=== PATIENT | female | born 1935 | race Two or more races ===

== ENCOUNTER 2018-09-09 07:45 | Inpatient (IN) | payer OTHER ==
[~2018-09-09] VITALS: Ht 160 cm; Wt 68.0 kg
[2018-09-09] MEDS ORDERED: SYNTHROID50 MCG PO (15:09)
[2018-09-09] MEDS ORDERED: LISINOPRIL20 MG (15:10)
[2018-09-09] MEDS ORDERED: BISOPROLOL FUMA10 MG (15:10)
[2018-09-09] MEDS ORDERED: CARDURA1 MG (15:11)
[2018-09-09] MEDS ORDERED: ASPIR 8181 MG (15:11)
[2018-09-12] MEDS ORDERED: DUI500 PO (16:50)
[2018-09-12] MEDS ORDERED: PERCOCET 5-3251 EACH PO (16:50)
[2018-09-12] MEDS ORDERED: ELIQUIS2.5 MG PO (16:50)
== END 2018-09-12 17:56 | DRG 470 ==
LOC: SURG 09-10 06:50 → O/R 09-10 06:50 → SURH 09-10 07:45 → SURG 09-10 14:39 → SURH 09-10 15:00 → SURG 09-12 17:56
PROVIDERS: ADMIT Orthopaedic Surgery
PROC: 0MNP0ZZ Release Left Knee Bursa and Ligament, Open Approach (ICD-10-PCS; 2018-09-10)
PROC: 0SRD0J9 Replacement of Left Knee Joint with Synthetic Substitute, Cemented, Open Approach (ICD-10-PCS; principal; 2018-09-10 15:00)
DX: M17.12 Unilateral primary osteoarthritis, left knee (principal); D62 Acute posthemorrhagic anemia; M81.0 Age-related osteoporosis without current pathological fracture; I25.10 Atherosclerotic heart disease of native coronary artery without angina pectoris; I11.9 Hypertensive heart disease without heart failure; E66.09 Other obesity due to excess calories; E03.8 Other specified hypothyroidism; I10 Essential (primary) hypertension

== ENCOUNTER 2022-03-24 14:24 | Emergency (ER) | payer OTHER ==
[~2022-03-24] VITALS: Ht 160 cm; Wt 65.8 kg
[~2022-03-24 14:24] MED LIST: ASPIR 8181 MG; BISOPROLOL FUMA10 MG; CARDURA1 MG; DUI500 PO; ELIQUIS2.5 MG PO; LISINOPRIL20 MG; PERCOCET 5-3251 EACH PO; SYNTHROID50 MCG PO
[2022-03-24] MEDS ORDERED: ZESTRIL20 MG PO (14:46)
[2022-03-24] MEDS ORDERED: BISOPROLOL FUMA10 MG PO (14:46)
[2022-03-24] MEDS ORDERED: CARDURA1 MG PO (14:47)
[2022-03-24] MEDS ORDERED: LEVOTHYROXINE25 MCG PO (14:47)
== END 2022-03-24 21:19 | disposition home or self-care (01) ==
LOC: ER 14:24
DX: K59.00 Constipation, unspecified (principal); R10.84 Generalized abdominal pain

== ENCOUNTER 2022-03-31 11:45 | Inpatient (IN) | payer OTHER ==
[~2022-03-31] VITALS: Ht 152.4 cm; Wt 67.6 kg
[~2022-03-31 11:45] MED LIST changes: +BISOPROLOL FUMA10 MG PO; +CARDURA1 MG PO; +LEVOTHYROXINE25 MCG PO; +ZESTRIL20 MG PO
[2022-03-31] MEDS ORDERED: ATORVASTATIN CA10 MG PO (15:18)
[2022-03-31] MEDS ORDERED: ZIAC 10/6.25 MG1 TAB PO (15:19)
[2022-04-27] MEDS ORDERED: HYOSCYAMINE0.125 M1 SL (09:16)
[2022-04-27] MEDS ORDERED: ULTRACET PO (09:17)
[2022-04-27] MEDS ORDERED: INTESTINEX680 M1 PO (09:17)
[2022-04-27] MEDS ORDERED: DICLOFENAC SODI75 MG PO (09:31)
== END 2022-04-27 12:39 | disposition home or self-care (01) | DRG 330 ==
LOC: SURG 04-06 11:45 → O/R 04-24 09:00 → SURH 04-24 09:00
PROVIDERS: Obstetrics & Gynecology; ADMIT Surgery; ATTEND Surgery
PROC: 07BC4ZZ Excision of Pelvis Lymphatic, Percutaneous Endoscopic Approach (ICD-10-PCS; 2022-04-24)
PROC: 0UB54ZZ Excision of Right Fallopian Tube, Percutaneous Endoscopic Approach (ICD-10-PCS; 2022-04-24)
PROC: 0DBU4ZZ Excision of Omentum, Percutaneous Endoscopic Approach (ICD-10-PCS; 2022-04-24)
PROC: 0DJD8ZZ Inspection of Lower Intestinal Tract, Via Natural or Artificial Opening Endoscopic (ICD-10-PCS; 2022-04-24)
PROC: 0DTN4ZZ Resection of Sigmoid Colon, Percutaneous Endoscopic Approach (ICD-10-PCS; principal; 2022-04-24 09:30)
PROC: 0DBP4ZZ Excision of Rectum, Percutaneous Endoscopic Approach (ICD-10-PCS; 2022-04-24 09:30)
DX: C18.7 Malignant neoplasm of sigmoid colon (principal); C77.9 Secondary and unspecified malignant neoplasm of lymph node, unspecified; R59.0 Localized enlarged lymph nodes; R19.4 Change in bowel habit; K57.30 Diverticulosis of large intestine without perforation or abscess without bleeding; Z20.822 Contact with and (suspected) exposure to COVID-19; I10 Essential (primary) hypertension; I25.10 Atherosclerotic heart disease of native coronary artery without angina pectoris

== ENCOUNTER 2022-06-01 10:03 | Day surgery (SDC) | payer OTHER ==
[~2022-06-01 10:03] MED LIST changes: +ATORVASTATIN CA10 MG PO; +DICLOFENAC SODI75 MG PO; +HYOSCYAMINE0.125 M1 SL; +INTESTINEX680 M1 PO; +ULTRACET PO; +ZIAC 10/6.25 MG1 TAB PO
[2022-06-01] MEDS ORDERED: ULTRACET PO (14:45)
== END 2022-06-01 20:00 | disposition home or self-care (01) ==
LOC: CIR.AMB 10:03
PROVIDERS: ATTEND Surgery
DX: C19 Malignant neoplasm of rectosigmoid junction (principal); Z20.822 Contact with and (suspected) exposure to COVID-19; I10 Essential (primary) hypertension